=== PATIENT | female | born 1990 | race Caucasian/White ===

== ENCOUNTER → 2016-03-23 | Outpatient (CLI) | payer OTHER ==
--- NOTE | 2016-03-23 15:25 | US ---
Ultrasound Neck or Head Soft Tissue Indication: Palpable abnormality posterolateral right neck. Findings: In the right neck is a morphologically normal-appearing lymph node measuring 0.6 x 0.2 x 1 .0 cm. There are no abnormal lymph nodes in the left and right cervical chains anteriorly. Impressions 1. Morphologically normal posterior cervical lymph node. 2. Posterior cervical lymph nodes can be seen in the setting of throat and mouth infections. This is probably benign but if it persists could be reevaluated or sampled.
== END ==
LOC: FIMAGING 14:01
PROVIDERS: ATTEND Family Medicine
DX: Z03.89 Encounter for observation for other suspected diseases and conditions ruled out (principal)